=== PATIENT | female | born 1960 | race Caucasian/White ===

== ENCOUNTER 2016-11-30 11:47 | Day surgery (SDC) | payer BC ==
[~2016-11-30] VITALS: Ht 160 cm; Wt 62.2 kg
[2016-11-30 12:30] VITALS: Ht 160 cm; Wt 62.2 kg
[2016-11-30] MEDS ORDERED: ATENOLOL (12:40)
[2016-11-30] MEDS ORDERED: MELOXICAM (12:40)
[2016-11-30] MEDS ORDERED: LIDOCAINE 2% (SDV) 5 ML INJ ONE (12:46)
[2016-11-30] MEDS ORDERED: PROPOFOL 20 ML ONE (12:46)
[2016-11-30] MEDS ORDERED: MIDAZOLAM 1 MG/ML 2 ML INJ ONE (12:46)
[2016-11-30 13:05] VITALS: BP 115/59; PULSE 72; RESP 14
[2016-11-30 14:29] VITALS: BP 121/62; PULSE 67; RESP 17
--- NOTE | 2016-11-30 15:45 | GILP ---
DATE OF PROCEDURE: NAME OF PROCEDURE: Colonoscopy. SURGEON: Nelida Wellington MD PREOPERATIVE DIAGNOSIS: Screening colonoscopy. POSTOPERATIVE DIAGNOSES 1. Colonoscopy all the way to the cecum. 2. Internal hemorrhoids. 3. No colon neoplasm was identified. INDICATION FOR THE PROCEDURE: Ms. Dianne Lerma is a 56-year-old female patient who has been sched uled for screening colonoscopy. The procedure and possible complications were being explained to the patient. She understands and c onsents to the procedure. DESCRIPTION OF PROCEDURE: Under the influence of anesthesia, the colonoscope was carefully introduc ed in the rectum and under direct vision, it was advanced all the way to the cecum. FINDINGS: The patient had internal hemorrhoids. No colon neoplasm was identified. She tolerated the procedure very well and there was no complication from the procedure. At the end of the procedures, she was awake with stable vital signs and she was discharged home to the care of her family. IMPRESSION: 1. Colonoscopy all the way to the cecum. 2. Internal hemorrhoids. 3. No colon neoplasm was identified. PLAN: Next screening colonoscopy in 10 years. Dictated By: NELIDA GOMEZ/TERRELL Conf#: [id number] DID#: [id number]
== END 2016-11-30 14:29 | disposition home or self-care (01) ==
LOC: GIL 11:47
PROVIDERS: ATTEND Internal Medicine Gastroenterology
DX: Z12.11 Encounter for screening for malignant neoplasm of colon (principal); K64.8 Other hemorrhoids; I10 Essential (primary) hypertension
CPT/HCPCS: 45378; J2250